=== PATIENT | female | born 1985 | race Hispanic/Latino ===

== ENCOUNTER 2016-12-31 22:12 | Emergency (ER) | payer OTHER ==
[~2016-12-31] VITALS: Ht 152.4 cm; Wt 78.0 kg
[~2016-12-31 22:12] MED LIST: DELTASONE20 MG PO; FLOMAX(MONOGRA0.4 MG PO; MIRENA52 MG; MOTRIN 600 MG600 MG PO; PERCOCET 325 MG1 TA2 PO; PERCOCET 5-3251 EACH PO
--- NOTE | 2016-12-31 23:15 | ED CARDIAC/CP/PALPITATIONS ---
History of Present Illness General Chief Complaint: Chest Pain Stated Complaint: CP Source: patient Exam Limitations: no limitations Vital Signs & Intake/Output Vital Signs & Intake/Output Vital Signs Date Time Temp Pulse Resp B/P B/P Pulse O2 O2 Flow FiO2 Mean Ox Delivery Rate 01/01 0317 96.8 77 18 112/69 99 Room Air 01/01 0017 96.6 77 20 111/66 99 Room Air 12/31 2225 98.7 79 18 121/74 98 Room Air ED Intake and Output 01/01 0000 12/31 1200 Intake Total Output Total Balance Patient 172 lb Weight Weight Reported by Patient Measurement Method Allergies Coded Allergies: morphine (Mild, REDNESS, ITCHING, RED WELPS 12/17/15) Reconcile Medications Oxycodone HCl/Acetaminophen (Percocet 5-325 MG Tablet) 1 EACH TABLET 1-2 TAB PO Q6P PRN PAIN Prednisone (Deltasone) 20 MG TABLET 3 TAB PO DAILY ALLERGIC REACTION Triage Note: PT 37 WEEKS , DUE DATE , TO TRIAGE WITH C/O CHEST PAIN 04/23 RADIATING TO UPPER BACK AND BILAT SHOULDER AINCE YESTERDAY. PT DENIES ABD PAIN, DENIES LOWER BACK PAIN, DENIES VAGINAL DISCHARGE. VSS. EKG DONE IN [facility]. PT CLEARED BY CBC TO STAY IN ER. Triage Nurses Notes Reviewed? yes Onset: Abrupt Duration: day(s):, waxing and waning Timing: recent history Quality/Severity: moderate Location: central Radiation: no radiation Activities at Onset: none Prior Chest Pain/Card Workup: no prior chest pain Modifying Factors: Worsens With: palpation. : Yes Patient currently breastfeeds: No HPI: 31 yo woman, 37 weeks gestation, chest and back pain started today. She notes that she feels pain in her central chest, her back, her neck, worse with deep inspiration. "It feels different from my muscles." She notes no fever, chills, cough, wheezing, sputum, lower extremity swelling. She is otherwise well. Past History Travel History Traveled to [place] past 21 day No Medical History Any Pertinent Medical History? 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 No Review of Systems Review of Systems Constitutional: Reports: no symptoms. EENTM: Reports: no symptoms. Respiratory: Reports: no symptoms. Cardiovascular: Reports: no symptoms. GI: Reports: no symptoms. Genitourinary: Reports: no symptoms. Musculoskeletal: Reports: no symptoms. Skin: Reports: no symptoms. Neurological/Psychological: Reports: no symptoms. Hematologic/Endocrine: Reports: no symptoms. Immunologic/Allergic: Reports: no symptoms. All Other Systems: Reviewed and Negative Physical Exam Physical Exam General Appearance: well developed/nourished, mild distress Head: atraumatic, normal appearance Eyes: Bilateral: normal appearance. Ears, Nose, Throat: normal pharynx, normal ENT inspection, hearing grossly normal Neck: normal inspection, supple, full range of motion Respiratory: normal breath sounds, no respiratory distress, parasternal chest wall tenderness. Cardiovascular: regular rate/rhythm Gastrointestinal: normal bowel sounds, soft, non-tender, no organomegaly Back: normal inspection, normal range of motion, muscle spasm, no vertebral tenderness Extremities: normal inspection, normal capillary refill, normal range of motion, no edema Neurologic/Psych: no motor/sensory deficits, awake, alert, oriented x 3 Skin: intact, normal color, warm/dry Core Measures ACS in differential dx? No Severe Sepsis Present: No Septic Shock Present: No Progress Differential Diagnosis: costochondritis vs pe vs other. Plan of Care: Orders Procedure Date/time Status TROPONIN LEVEL 01/01 2324 Complete PARTIAL THROMBOPLASTIN TIME 01/01 2324 Complete PROTHROMBIN TIME 01/01 2324 Complete D-DIMER 01/01 2324 Complete COMPREHENSIVE METABOLIC PANEL 01/01 2324 Complete CBC WITHOUT DIFFERENTIAL 01/01 2324 Complete EKG 12/31 2212 Active Laboratory Tests 12/31/16 2340: Anion Gap 12, Estimated GFR > 60, BUN/Creatinine Ratio 14.0, Glucose 90, Calcium 9.4, Total Bilirubin 0.5, AST 18, ALT 38, Alkaline Phosphatase 217 H, Troponin I < 0.01, Total Protein 6.4, Albumin 3.2 L, Globulin 3.2, Albumin/Globulin Ratio 1.0 L, PT 10.6, INR 1.01, APTT 27, D-Dimer 394 H, CBC w Diff NO MAN DIFF REQ, RBC 3.83 L, MCV 92.3, MCH 31.6 H, RDW 13.4, MPV 12.3 H, Gran % 75.5 H, Lymphocytes % 17.7 L, Monocytes % 5.4, Eosinophils % 0.9, Basophils % 0.5, Absolute Granulocytes 8.6 H, Absolute Lymphocytes 2.0, Absolute Monocytes 0.6, Absolute Eosinophils 0.1, Absolute Basophils 0.1, PUBS MCHC 34.3 Diagnostic Imaging: Viewed by Me: CT Scan. Discussed w/RAD: CT Scan. Radiology Impression: ct angio... no PE, 3mm nodule... Initial ED EKG: normal axis, normal intervals, normal p-waves, normal QRS complex, normal sinus rhythm Comments: PATIENT: RADHA KRUSE PRESENT AGE: 31 PATIENT ACCOUNT NO: [id number] : 85 LOCATION: [facility] ORDERING PHYSICIAN: EVANGELIST VASQUEZ MD SERVICE DATE: 01/01/17 EXAM TYPE: CAT - CTA CHEST-PULMONARY EMBOLISM EXAMINATION: CT ANGIOGRAM OF THE CHEST WITH AND WITHOUT CONTRAST (CT PULMONARY ANGIOGRAM FOR PE) CLINICAL INFORMATION: Presumptive Dx: CHEST PAIN, +DIMER... 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 TECHNIQUE: Prior to contrast administration, noncontrast localization images were obtained. Subsequently, multidetector volumetric imaging was performed from the thoracic inlet to below the diaphragms following the administration of 100 mL Optiray 350 intravenous contrast. No contrast reaction reported. Sagittal, coronal, and MIP oblique sagittal reformatted images were obtained on the CT workstation, uploaded to PACS, and reviewed. Total exam dose-length product 331.65 mGy-cm. FINDINGS: The timing of the contrast bolus injection is suboptimal therefore the capability of accurately detecting acute pulmonary embolism is limited. Grossly there is no large filling defect within the right and left pulmonary arteries. Lung volumes are low. There is no focal consolidative disease, pleural effusion, or pneumothorax. There is a 3 mm subpleural pulmonary nodule within the right lower lobe best illustrated on axial image 242 of 390 series 2. The trachea and major airways are patent. The thoracic outlet including the visualized portions of the thyroid gland are unremarkable. The chest wall is intact. Specifically no acute rib fracture. Extrathoracic soft tissues are unremarkable. Visualized portions of the abdominal cavity reveal no abnormal finding. IMPRESSION: Limited examination. Grossly there is no large filling defect within the central pulmonary arteries. The distal branches of the pulmonary arteries are not well assessed. There is a 3 mm subpleural pulmonary nodule within the right lower lobe. No follow-up for this nodule is necessary for a low risk patient based on revised criteria established by the Fleischner Society recommendations for incidental pulmonary nodules. Otherwise unremarkable examination with no evidence of consolidative disease or effusion. VTE: negative DICTATED BY: ALEXANDRE BATEMAN MD DATE/TIME DICTATED:01/01/17240 DIAMOND DIE POLISHER:EBEN DATE/TIME TRANSCRIBED:01/01/17240 CONFIDENTIAL, DO NOT COPY WITHOUT APPROPRIATE AUTHORIZATION. <Electronically signed in Other Vendor System> SIGNED BY: ALEXANDRE BATEMAN MD 01/01 0257 Departure Departure Disposition: HOME OR SELF CARE Condition: Stable Clinical Impression Primary Impression: Chest pain Secondary Impressions: Referrals: BRITNEY JENSEN APRN (PCP/Family) Departure Forms: Customer Survey General Discharge Information Comments 12/31/16, 23:15... discussed with dr. gastelum who evaluated patient at [facility]... pt cleared by OB... No sign of pre-eclampsia, labor/contractions. Pt referred back to ED for further evaluation. Discussed that if she needed to assess for PE, he would approved further evaluation such as CT angio. 01/01/17, 3:13AM... pt with negative ct scan for PE... small nodule noted... discussed at length with patient... pt referred to audiology technician and she will follow up also with her spooler. Critical Care Note Critical Care Note Critical Care Time: non-applicable
[2016-12-31 23:49] LABS: ABSOLUTE BASOPHIL COUNT 0.1 /CUMM (0.0-0.2); ABSOLUTE EOSINOPHIL COUNT 0.1 /CUMM (0.0-0.7); ABSOLUTE GRANULOCYTE CT 8.6 /CUMM (1.4-6.5); ABSOLUTE MONOCYTE COUNT 0.6 /CUMM (0.10-0.60); BASOPHIL % 0.5 % (0.0-2.0); EOSINOPHIL % 0.9 % (0-5); GRANULOCYTE % 75.5 % (42.2-75.2); HEMATOCRIT 35.4 % (37-47); MEAN CORPUSCULAR HGB 31.6 PG (27.0-31.0); MEAN CORPUSCULAR HGB CONC 34.3 G/DL (33.0-37.0); MEAN CORPUSCULAR VOLUME 92.3 FL (81.0-99.0); MEAN PLATELET VOLUME 12.3 FL (7.4-10.4); PLATELET COUNT 112 /CUMM (130-400); RBC DISTRIBUTION WIDTH 13.4 % (11.5-14.5); RED BLOOD CELL CT 3.83 /CUMM (4.20-5.40); WHITE BLOOD CELL COUNT 11.4 /CUMM (4.8-10.8)
[2016-12-31 23:56] LABS: PT 10.6 SEC (9.4-12.5); PTT 27 SEC (25-37)
--- NOTE | 2017-01-01 02:57 | CT SCAN REPORT ---
EXAMINATION: CT ANGIOGRAM OF THE CHEST WITH AND WITHOUT CONTRAST (CT PULMONARY ANGIOGRAM FOR PE) CLINICAL INFORMATION: Presumptive Dx: CHEST PAIN, +DIMER... 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 TECHNIQUE: Prior to contrast administration, noncontrast localization images were obtained. Subsequently, multidetector volumetric imaging was performed from the thoracic inlet to below the diaphragms following the administration of 100 mL Optiray 350 intravenous contrast. No contrast reaction reported. Sagittal, coronal, and MIP oblique sagittal reformatted images were obtained on the CT workstation, uploaded to PACS, and reviewed. Total exam dose-length product 331.65 mGy-cm. FINDINGS: The timing of the contrast bolus injection is suboptimal therefore the capability of accurately detecting acute pulmonary embolism is limited. Grossly there is no large filling defect within the right and left pulmonary arteries. Lung volumes are low. There is no focal consolidative disease, pleural effusion, or pneumothorax. There is a 3 mm subpleural pulmonary nodule within the right lower lobe best illustrated on axial image 242 of 390 series 2. The trachea and major airways are patent. The thoracic outlet including the visualized portions of the thyroid gland are unremarkable. The chest wall is intact. Specifically no acute rib fracture. Extrathoracic soft tissues are unremarkable. Visualized portions of the abdominal cavity reveal no abnormal finding. IMPRESSION: Limited examination. Grossly there is no large filling defect within the central pulmonary arteries. The distal branches of the pulmonary arteries are not well assessed. There is a 3 mm subpleural pulmonary nodule within the right lower lobe. No follow-up for this nodule is necessary for a low risk patient based on revised criteria established by the Fleischner Society recommendations for incidental pulmonary nodules. Otherwise unremarkable examination with no evidence of consolidative disease or effusion. VTE: negative
[2017-01-01 03:17] VITALS: BP 112/69
== END 2017-01-01 03:17 ==
LOC: ERH 22:12
PROVIDERS: Pediatrics
DX: O26.93 Pregnancy related conditions, unspecified, third trimester (principal); R07.89 Other chest pain
CPT/HCPCS: 59025; 93005; 93010

== ENCOUNTER 2017-01-14 05:25 | Inpatient (IN) | payer OTHER ==
--- NOTE | 2017-01-13 18:49 | History & Physical ---
General Information and HPI MD Statement: The I have seen and personally examined RADHA KRUSE and documented this H&P. The patient is a 31 year old female at 38[] weeks and [6] days gestation who presented with a chief complaint of [worsening thrombocytopenia]. Source of Information: patient, old records History of Present Illness: Patient is a 31-year-old 8 para 2 LMP 04/17/2016 EDC 01/22/2017 at 38 weeks and 6 days who presents to labor and delivery for planned elective repeat section secondary to worsening thrombocytopenia. Platelets this week were 78,000 a drop from 93,000. The patient has a previous and is not a candidate for induction of labor. care is complete and remarkable for thrombocytopenia and rubella nonimmune. 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 EENTM: Reports: no symptoms. Cardiovascular: Reports: no symptoms. Respiratory: Reports: no symptoms. GI: Reports: no symptoms. Genitourinary: Reports: no symptoms. Musculoskeletal: Reports: no symptoms. Skin: Reports: no symptoms. Neurological/Psychological: Reports: no symptoms. Hematologic/Endocrine: Denies: bruising, bleeding. Immunologic/Allergic: Reports: no symptoms. All Other Systems: Reviewed and Negative Exam & Diagnostic Data Last 24 Hrs of Vital Signs/I&O Vital signs stable Obstetric Exam Wgt Gained During : 25 pounds Pelvimetry: Gynecoid Dilation (cm): 0 Effacement (%): 0 Station: -3 Membranes: intact Fluid: unknown Fundal Height (cm): 40 Multiple Gestation? No Contractions: None #1 - FHR Baseline: 130 Category: 1 Estimated Weight: 6-1/2 pounds Presentation: Cephalic Patient for Induction? No Labs Blood Type & Rh: O+ Antibody Screen: Negative Hct/Hgb & Platelets #1: Hct/Hgb & Platelets #2: Rubella: Immune VDRL #1: Nonreactive VDRL #2: Nonreactive HbsAg: Negative HIV #1: Negative HIV #2 Negative 1 Hr P Group B Strep: Negative Initial Ultrasound: Within normal limits Anatomy Ultrasound: Within normal limits Ultrasound for EFW: 6 Genetic Testing: Negative Assessment/Plan Assessment/Plan: 38 week 6 day worsening thrombocytopenia, previous Plan: Repeat section; 1 unit of platelets on hold As Ranked By This Provider Problem List: 1. Gestational thrombocytopenia Core Measures/Miscellaneous Venous Thromboembolism VTE Risk Factors: / VTE Contraindications: No Contraindications VTE Diagnosis: No Beta Beth Is Beta Beth a Home Med? No Antibiotics Is Patient on Antibiotics? Yes
[~2017-01-14] VITALS: Ht 152.4 cm; Wt 80.7 kg
[2017-01-14 05:55] LABS: ABSOLUTE BASOPHIL COUNT 0.1 /CUMM (0.0-0.2); ABSOLUTE EOSINOPHIL COUNT 0.1 /CUMM (0.0-0.7); ABSOLUTE GRANULOCYTE CT 8.4 /CUMM (1.4-6.5); ABSOLUTE LYMPH COUNT 2.3 /CUMM (1.2-3.4); ABSOLUTE MONOCYTE COUNT 0.7 /CUMM (0.10-0.60); BASOPHIL % 0.5 % (0.0-2.0); GRANULOCYTE % 72.5 % (42.2-75.2); HEMATOCRIT 37.1 % (37-47); MEAN CORPUSCULAR HGB 30.9 PG (27.0-31.0); MEAN CORPUSCULAR HGB CONC 33.3 G/DL (33.0-37.0); MEAN CORPUSCULAR VOLUME 92.8 FL (81.0-99.0); MEAN PLATELET VOLUME 13.7 FL (7.4-10.4); RBC DISTRIBUTION WIDTH 13.7 % (11.5-14.5); RED BLOOD CELL CT 3.99 /CUMM (4.20-5.40); WHITE BLOOD CELL COUNT 11.6 /CUMM (4.8-10.8)
[2017-01-14 06:20] LABS: PLATELET COUNT 109 /CUMM (130-400)
[2017-01-14 08:59] VITALS: BP 104/57
[2017-01-15 06:58] LABS: ABSOLUTE BASOPHIL COUNT 0 /CUMM (0.0-0.2); ABSOLUTE EOSINOPHIL COUNT 0.1 /CUMM (0.0-0.7); ABSOLUTE LYMPH COUNT 1.2 /CUMM (1.2-3.4); ABSOLUTE MONOCYTE COUNT 0.7 /CUMM (0.10-0.60); BASOPHIL % 0.1 % (0.0-2.0); EOSINOPHIL % 0.6 % (0-5); HEMATOCRIT 32.3 % (37-47); MEAN CORPUSCULAR HGB 31.6 PG (27.0-31.0); MEAN CORPUSCULAR HGB CONC 34.1 G/DL (33.0-37.0); MEAN CORPUSCULAR VOLUME 92.8 FL (81.0-99.0); MEAN PLATELET VOLUME 14.2 FL (7.4-10.4); RBC DISTRIBUTION WIDTH 13.3 % (11.5-14.5); RED BLOOD CELL CT 3.48 /CUMM (4.20-5.40)
[2017-01-15 07:16] LABS: GRANULOCYTE % 80.2 % (42.2-75.2); PLATELET COUNT 85 /CUMM (130-400)
[2017-01-16 06:14] LABS: ABSOLUTE BASOPHIL COUNT 0 /CUMM (0.0-0.2); ABSOLUTE EOSINOPHIL COUNT 0.1 /CUMM (0.0-0.7); ABSOLUTE GRANULOCYTE CT 5.2 /CUMM (1.4-6.5); ABSOLUTE LYMPH COUNT 1.8 /CUMM (1.2-3.4); ABSOLUTE MONOCYTE COUNT 0.7 /CUMM (0.10-0.60); BASOPHIL % 0.5 % (0.0-2.0); EOSINOPHIL % 1.8 % (0-5); GRANULOCYTE % 65.4 % (42.2-75.2); HEMATOCRIT 31.8 % (37-47); MEAN CORPUSCULAR HGB 31.2 PG (27.0-31.0); MEAN CORPUSCULAR HGB CONC 33.2 G/DL (33.0-37.0); MEAN CORPUSCULAR VOLUME 94.1 FL (81.0-99.0); MEAN PLATELET VOLUME 12.1 FL (7.4-10.4); RBC DISTRIBUTION WIDTH 13.9 % (11.5-14.5); RED BLOOD CELL CT 3.38 /CUMM (4.20-5.40)
[2017-01-16 06:41] LABS: PLATELET COUNT 104 /CUMM (130-400)
--- NOTE | 2017-01-16 08:27 | PN- Post Delivery/GYN ---
Subjective Subjective: no c/o Review of Systems: neg Objective Last 24 Hrs of Vital Signs/I&O vss Physical Exam: ff incision c/d/i ext nt Assessment/Plan Assessment/Plan s/p c/s pod 2 stable circ discharge tomorrow Problem List: 1. 2. Gestational thrombocytopenia
[2017-01-16] MEDS ORDERED: IBUPROFEN800 M1 PO (17:50)
[2017-01-16] MEDS ORDERED: DOCUSATE SODIU100 M3 PO (17:50)
[2017-01-16] MEDS ORDERED: MACRODANTIN50 M1 PO (17:50)
[2017-01-16] MEDS ORDERED: PERCOCET 5-3251 EACH PO (17:50)
--- NOTE | 2017-01-16 18:32 | Operative Report ---
Operative/Inv Procedure Report Surgery Date: 01/14/17 Name of Procedure: Repeat section Pre-Operative Diagnosis: Gestational thrombocytopenia Post-Operative Diagnosis: Same Estimated Blood Loss: 650 Surgeon/Milk Bottling Machine Operator: MICHELLE CTOA MD,FERMÍN Downey M.D. Anesthesia: spinal Operative/Procedure Note Note: The patient was brought to the operating room placed on the OR table in the sitting position where she underwent spinal anesthetic without complication. Betadine boots were placed and activated. The patient was placed into dorsal supine with a block under her right. A Resendiz catheter was inserted into the bladder and drained clear yellow urine. The abdomen was prepped and draped in the usual sterile fashion and tested. A Pfannenstiel skin incision was made through the old scar and taken down to the layer of the fascia. The fascia was nicked in the midline and extended bilaterally. The underlying rectus muscles were and the peritoneal cavity was entered bluntly. A bladder blade was inserted to protect the bladder from the operative field. A low a bladder flap was created using Metzenbaum scissors. A low transverse uterine incision was made with the scalpel and a liveborn male was delivered atraumatically and handed off to the waiting extrusion press supervisor. The placenta was then manually removed the uterus was exteriorized and wiped clean with a wet lap sponge. It was closed in 2 layers of 0 Polysorb the second imbricating the first. The abdomen and pelvis were copiously irrigated and the uterus was placed back into the abdominal cavity. Suture line was once again visualized and noted to be hemostatic. Rectus muscles were reapproximated with a mattress suture of 2-0 Polysorb. The fascia was closed using 0 Polysorb in a running nonlocking fashion. Subcutaneous tissues were irrigated and coagulated were needed and the skin was closed using sohan. A dry sterile dressing was applied to the wound patient was sent to recovery in good condition. All needle, sponge, and management counts were correct at the end of the procedure 4.
--- NOTE | 2017-01-17 10:21 | PN- Post Delivery/GYN ---
Subjective Subjective: Doing well today with no complaints. Ambulating, tolerating PO, voiding well and passing flatus. Asking to go home today Objective Last 24 Hrs of Vital Signs/I&O NAD RRR CTAB NT and good BS Assessment/Plan Assessment/Plan POD#3 s/p LTCS Doing well overall and can be discharged home (meeting all milestones) Discharge instructions and precautions given. Patient voiced understanding. Attending MD Review Statement Attending Statement Attending MD Statement: examined this patient, discussed with family, discussed with nursing
--- NOTE | 2017-01-21 12:34 | Surgical Discharge Summary ---
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 Greek Review of Systems: Negative Hospital Course Course Attending Physician: FERMÍN ALEXANDRA MD Primary Care Physician: BRITNEY JENSEN APRN [place] [facility] Course: The patient was admitted and underwent repeat for gestational thrombocytopenia she was sent to recovery in good condition. On postoperative day #1 her Resendiz was discontinued her signs are stable and she was afebrile her platelet count did drop slightly. Diet was advance activity was increased on postoperative day #2 platelet count increased she was doing well postoperative day #3 she continued to do well and was discharged home Allergies: Coded Allergies: morphine (Mild, REDNESS, ITCHING, RED WELPS 12/17/15) Disposition Summary Disposition Principal Diagnosis: 38 week Additional Diagnosis: Gestational thrombocytopenia Discharge Disposition: home or self care Discharge Instructions General Discharge Information Code Status: Full Code Patient's Diet: Regular Patient's Activity: Pelvic rest Follow-Up Instructions/Appts: 1 week Medications at Discharge Discharge Medications: Stop taking the following medications: Prednisone (Deltasone) 20 MG TABLET ORAL DAILY Days = 4 Oxycodone HCl/Acetaminophen (Percocet 5-325 MG Tablet) 1 EACH TABLET ORAL EVERY SIX HOURS NEEDED as needed for PAIN Qty = 20 Start taking the following new medications: Nitrofurantoin (Macrodantin) 50 MG CAPSULE 50 Milligram ORAL EVERY SIX HOURS Qty = 28 No Refills Comments: Last Taken:01/17/17 Time: 8:00 am Ibuprofen (Ibuprofen) 800 MG TABLET 800 Milligram ORAL EVERY SIX HOURS NEEDED as needed for UTERINE CRAMPING Qty = 36 No Refills Comments: Last Taken: 01/17/17 Time: 4:30 am Oxycodone HCl/Acetaminophen (Percocet 5-325 MG Tablet) 5 MG-325 MG TABLET 1 Tablet ORAL EVERY 4 HOURS NEEDED as needed for PAIN SCALE 4-6 (MODERATE ) Qty = 24 No Refills Comments: Last Taken: 01/17/17 Time: 9:00 am Docusate Sodium (Docusate Sodium) 100 MG CAPSULE 100 Milligram ORAL AT BEDTIME as needed for STOOL SOFTENER Qty = 60 No Refills Comments: Last Taken: 01/16/17 Time: 10:20 pm
== END 2017-01-17 11:20 | DRG 540 ==
LOC: GNO 05:25
PROVIDERS: ADMIT Obstetrics & Gynecology
PROC: 10D00Z1 Extraction of Products of Conception, Low, Open Approach (ICD-10-PCS; principal; 2017-01-14)
DX: O99.12 Other diseases of the blood and blood-forming organs and certain disorders involving the immune mechanism complicating childbirth (principal); D69.6 Thrombocytopenia, unspecified; Z3A.39 39 weeks gestation of pregnancy; Z37.0 Single live birth; O34.211 Maternal care for low transverse scar from previous cesarean delivery; N85.8 Other specified noninflammatory disorders of uterus
CPT/HCPCS: GNOS; 36415; 80307; 81001; 82570; 87086; 88307; J0131; J0690; J1170; J1200; J1885; J7120

== ENCOUNTER 2017-11-22 12:53 | Emergency (ER) | payer OTHER ==
[~2017-11-22 12:53] MED LIST changes: +DOCUSATE SODIU100 M3 PO; +IBUPROFEN800 M1 PO; +MACRODANTIN50 M1 PO
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
[2017-11-22] MEDS ORDERED: CYCLOBENZAPRINE10 M1 PO (13:17)
[2017-11-22] MEDS ORDERED: KETOROLAC TROME10 M1 PO (13:17)
--- NOTE | 2017-11-22 14:23 | RADIOLOGY REPORT ---
EXAMINATION: XR HUMERUS, RIGHT XR ELBOW, RIGHT CLINICAL INFORMATION: Right humeral and elbow contusion. Evaluate for fracture. COMPARISON: Contralateral left elbow films dated 02/04/2016. TECHNIQUE: AP and lateral views of the right humerus. 4 views of the right elbow. FINDINGS: Right humerus and elbow: The bones and soft tissues are normal. No fracture. Imaged portions of the shoulder and elbow are unremarkable. IMPRESSION: Normal right humerus and right elbow.
[2017-11-22 14:26] VITALS: BP 114/78
== END 2017-11-22 14:43 ==
LOC: ERH 12:53
DX: S16.1XXA Strain of muscle, fascia and tendon at neck level, initial encounter (principal); S06.0X0A Concussion without loss of consciousness, initial encounter; S80.11XA Contusion of right lower leg, initial encounter; S39.012A Strain of muscle, fascia and tendon of lower back, initial encounter; M79.601 Pain in right arm; V47.5XXA Car driver injured in collision with fixed or stationary object in traffic accident, initial encounter
CPT/HCPCS: 73060-RT; 73080-RT; 96372

== ENCOUNTER 2018-03-17 19:43 | Emergency (ER) | payer OTHER ==
[~2018-03-17] VITALS: Ht 152.4 cm; Wt 76.2 kg
[~2018-03-17 19:43] MED LIST changes: +CYCLOBENZAPRINE10 M1 PO; +KETOROLAC TROME10 M1 PO
[2018-03-17 19:46] VITALS: BP 115/72
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
[2018-03-17] MEDS ORDERED: PERCOCET 5-3251 EACH PO (20:16)
[2018-03-17] MEDS ORDERED: AMOXICILLIN875 M1 PO (20:16)
== END 2018-03-17 20:22 ==
LOC: ERH 19:43
DX: S09.93XA Unspecified injury of face, initial encounter (principal); Y04.8XXA Assault by other bodily force, initial encounter; Y92.009 Unspecified place in unspecified non-institutional (private) residence as the place of occurrence of the external cause; Y93.9 Activity, unspecified

== ENCOUNTER 2018-05-08 16:32 | Emergency (ER) | payer OTHER ==
[~2018-05-08] VITALS: Ht 152.4 cm; Wt 72.6 kg
[~2018-05-08 16:32] MED LIST changes: +AMOXICILLIN875 M1 PO
[2018-05-08 16:35] VITALS: BP 141/87
[2018-05-10] MEDS ORDERED: KEFLEX500 M1 PO ×2 (01:20→01:28)
[2018-05-10] MEDS ORDERED: FLOMAX0.4 M1 PO (01:20)
[2018-05-10] MEDS ORDERED: PERCOCET 5-3251 EACH PO (01:20)
[2018-05-10] MEDS ORDERED: ZOFRAN ODT4 M1 SL (01:21)
== END 2018-05-08 18:28 | disposition admitted as inpatient to this hospital (09) ==
LOC: ERH 16:32
DX: R10.9 Unspecified abdominal pain (principal); Z87.442 Personal history of urinary calculi
CPT/HCPCS: 81001; 81025; 99281

== ENCOUNTER 2018-05-11 14:45 | Emergency (ER) | payer OTHER ==
[~2018-05-11 14:45] MED LIST changes: +FLOMAX0.4 M1 PO; +KEFLEX500 M1 PO; +ZOFRAN ODT4 M1 SL
[2018-05-11 15:13] LABS: ABSOLUTE BASOPHIL COUNT 0.1 /CUMM (0.0-0.2); ABSOLUTE EOSINOPHIL COUNT 0.2 /CUMM (0.0-0.7); ABSOLUTE GRANULOCYTE CT 7.5 /CUMM (1.4-6.5); ABSOLUTE LYMPH COUNT 1.7 /CUMM (1.2-3.4); BASOPHIL % 0.7 % (0.0-2.0); GRANULOCYTE % 71.7 % (42.2-75.2); HEMATOCRIT 41.1 % (37-47); MEAN CORPUSCULAR HGB 32.8 PG (27.0-31.0); MEAN CORPUSCULAR HGB CONC 33.1 G/DL (33.0-37.0); MEAN CORPUSCULAR VOLUME 99.2 FL (81.0-99.0); MEAN PLATELET VOLUME 10.7 FL (7.4-10.4); PLATELET COUNT 196 /CUMM (130-400); RBC DISTRIBUTION WIDTH 13.9 % (11.5-14.5); RED BLOOD CELL CT 4.15 /CUMM (4.20-5.40); WHITE BLOOD CELL COUNT 10.4 /CUMM (4.8-10.8)
[2018-05-11 15:24] VITALS: BP 118/66
--- NOTE | 2018-05-11 15:37 | ED GENERAL ADULT ---
See Addendum History of Present Illness General Chief Complaint: General Adult Stated Complaint: SENT IN BY MD DINH FOR ?US Source: patient Exam Limitations: no limitations Vital Signs & Intake/Output Vital Signs & Intake/Output Vital Signs Date Time Temp Pulse Resp B/P B/P Pulse O2 O2 Flow FiO2 Mean Ox Delivery Rate 05/11 1524 98.8 81 20 118/66 96 Allergies Coded Allergies: morphine (Mild, REDNESS, ITCHING, RED WELPS 03/17/18) Reconcile Medications Amoxicillin 875 MG TABLET 1 TAB PO BID TOOTH INJURY Cephalexin (Keflex) 500 MG CAPSULE 1 CAP PO 4 TIMES/DAY INFECTION Cephalexin (Keflex) 500 MG CAPSULE 1 CAP PO BID UTI Nitrofurantoin Monohyd/M-Cryst (Macrobid 100 MG Capsule) 100 MG CAPSULE 1 CAP PO BID UTI with food Ondansetron (Zofran Odt) 4 MG TAB.RAPDIS 1 TAB SL TID PRN nausea Oxycodone HCl/Acetaminophen (Percocet 5-325 MG Tablet) 5 MG-325 MG TABLET 1 TAB PO BID PAIN Oxycodone HCl/Acetaminophen (Percocet 5-325 MG Tablet) 5 MG-325 MG TABLET 1 TAB PO Q4-6 PRN PRN pain Tamsulosin HCl (Flomax) 0.4 MG CAP.ER.24H 1 CAP PO DAILY PRN renal stone Triage Note: PER PT HERE FOR US AND ANTIBIOTIC TO BE SWITCHED BY DR DINH. PT NOT FORTHCOMING AND APPEARS AGITATED THAT THIS RN IS ASKING QUESTIONS Triage Nurses Notes Reviewed? yes Onset: Gradual Duration: day(s): Timing: constant : No Patient currently breastfeeds: No HPI: 32-year-old female at unknown gestation (unsure of LMP) with a history of renal stones presenting for repeat ultrasound and hCG check. Patient was seen in the emergency department 2 days ago for right flank pain that is likely a renal stone, with resulting UTI. She was discharged home with Flomax, Percocet, and cephalexin. Her urine culture results at this morning and showed resistance to cephalexin, but was sensitive to Macrobid. She reports no improvement in her right flank pain. Was instructed to follow-up with Dr. Pimentel, but has not yet made her appointment with urology. During her last visit patient had a positive urine test with lower abdominal cramping. She had an ultrasound done to rule out ectopic, which showed an empty uterus and right-sided ovarian mass that was corpus luteum versus ectopic. She was instructed to return to the emergency department for repeat ultrasound and hCG check in 48 hours. Patient reports that her lower abdominal cramping has resolved. Denies fevers, nausea, vomiting, dysuria, hematuria, vaginal bleeding, vaginal discharge. (Felisha Delcid) Past History Travel History Traveled to [place] past 21 day No Medical History Any Pertinent Medical History? 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 No (Felisha Delcid) Review of Systems Review of Systems Constitutional: Reports: no symptoms. EENTM: Reports: no symptoms. Respiratory: Reports: no symptoms. Cardiovascular: Reports: no symptoms. GI: Reports: see HPI. Genitourinary: Reports: see HPI. Musculoskeletal: Reports: no symptoms. Skin: Reports: no symptoms. Neurological/Psychological: Reports: no symptoms. Hematologic/Endocrine: Reports: no symptoms. Immunologic/Allergic: Reports: no symptoms. All Other Systems: Reviewed and Negative (Felisha Delcid) Physical Exam Physical Exam General Appearance: well developed/nourished, no apparent distress, alert, awake , comfortable Comments: Gen.: Well-nourished, well-developed, no acute distress. Head: Normocephalic, atraumatic. Eyes: Normal inspection bilaterally Ears: Normal inspection bilaterally Nose: Normal inspection Neck: Normal inspection Lungs: clear to auscultation bilaterally, normnal breath sounds Heart: regular rate and rhythm Abdomen: soft and non-tender Back: No CVA tenderness Extremities: Normal inspection Neurologic: alert and oriented x3, steady gait Skin: warm and dry Psychiatric: Normal mood and affect, no apparent delusions or hallucinations, behavior appropriate Core Measures ACS in differential dx? No CVA/TIA Diagnosis: No Sepsis Present: No Sepsis Focused Exam Completed? No (Felisha Delcid) Progress Differential Diagnoses I considered the following diagnoses in my evaluation of the patient: [Renal stone versus hydronephrosis versus UTI versus pyelonephritis versus first trimester versus ectopic] Plan of Care: Orders Procedure Date/time Status HUMAN BETA HCG TITRE 05/11 1455 Complete CBC WITHOUT DIFFERENTIAL 05/11 145 Complete BASIC METABOLIC PANEL 05/11 145 Complete Current Medications Sig/Maya Start time Last Medication Dose Stop Time Status Admin Nitrofurantoin 100 MG ONCE ONE 05/11 1545 CAN (Macrodantin 50MG 05/11 154 Cap) Laboratory Tests 05/11/18 1510: Anion Gap 8, Estimated GFR > 60, BUN/Creatinine Ratio 18.0, Glucose 108 H, Calcium 9.6, Beta HCG, Quant 323.3, CBC w Diff NO MAN DIFF REQ, RBC 4.15 L, MCV 99.2 H, MCH 32.8 H, MCHC 33.1, RDW 13.9, MPV 10.7 H, Gran % 71.7, Lymphocytes % 16.4 L, Monocytes % 9.2, Eosinophils % 2.0, Basophils % 0.7, Absolute Granulocytes 7.5 H, Absolute Lymphocytes 1.7, Absolute Monocytes 1.0 H, Absolute Eosinophils 0.2, Absolute Basophils 0.1 Labs unremarkable, beta hCG is doubling appropriately and currently 323. Patient requesting to be discharged and be called with the results of her ultrasound. At this time there is low concern for ectopic as her hCG is doubling appropriately, and she has no current abdominal pain. On reassessment her abdomen remains soft and nontender. Her vital signs are within normal limits. On review of her chart her ultrasound results are as follows: IMPRESSION: - No intrauterine or ectopic is identified at this time. - 2.4 cm corpus luteum cyst of the right ovary. - Clinical follow-up with serial beta-hCG assessment may be needed. If beta hCG levels are progressively rising, additional sonographic follow-up may be appropriate in order to document presence/absence of a viable intrauterine gestation. Dr. Dinh reports that he received a phone call from the radiologist who reported that there is likely an early IUP, but that it is difficult to tell at this time. Patient called and informed that she will continue to need repeat ultrasounds and beta hCGs. She will follow-up with her FLOORING HELPER for reevaluation. And was given strict return precautions. Initial ED EKG: none (Felisha Delcid) Departure Departure Disposition: HOME OR SELF CARE Condition: Stable Clinical Impression Primary Impression: UTI (urinary tract infection) Secondary Impressions: First trimester , Flank pain Referrals: Ketan Brower APRN (PCP/Family) Additional Instructions: Stop taking cephalexin, and begin taking nitrofurantoin for UTI. Follow-up with urology for reevaluation of your likely renal stone. Continue using Tylenol and /or Percocet as needed for pain. Continue using Flomax to help your renal stone the past. Follow-up with FLOORING HELPER for further evaluation of your . Return to the emergency department for any new or worsening symptoms. Departure Forms: Customer Survey General Discharge Information Prescriptions: Current Visit Scripts Nitrofurantoin Monohyd/M-Cryst (Macrobid 100 MG Capsule) 1 CAP PO BID #14 CAP with food (Felisha Delcid) Departure Comments PA/GAS STOVE SERVICER HELPER Co-Sign Statement Statement: ED Attending supervision documentation- [X] I saw and evaluated the patient. I have also reviewed all the pertinent lab results and diagnostic results. I agree with the findings and the plan of care as documented in the PA's/GAS STOVE SERVICER HELPER's documentation. [] I have reviewed the ED Record and agree with the PA's/GAS STOVE SERVICER HELPER's documentation. [] Additions or exceptions (if any) to the PAs/GAS STOVE SERVICER HELPER's note and plan are summarized below: [] PATIENT: RADHA KRUSE PRESENT AGE: 32 PATIENT ACCOUNT NO: [id number] : 85 LOCATION: [facility] ORDERING PHYSICIAN: Felisha VILLANUEVA SERVICE DATE: 05/11/18 EXAM TYPE: US - US TRANSVAG EXAMINATION: US TRANSVAGINAL CLINICAL INFORMATION: 32-year-old female with abdominal pain. Uncertainty regarding LMP (March?). COMPARISON: Pelvic ultrasound, 05/09/2018 TECHNIQUE: Sonographic imaging of the pelvis was performed using transabdominal and transvaginal transducers. I requested to have the patient return to the ultrasound imaging suite for my evaluation; however, the patient reportedly discharged herself from the Emergency Room. FINDINGS: The uterus is anteflexed. The endometrium measures up to 1 cm AP. Within the lower uterine segment, there is a 0.5 x 0.4 x 0.3 cm hypoechoic focus that is too small to characterize. It might represent a trace amount of fluid or hemorrhage within the endometrial cavity. There is no convincing gestational sac identified within the endometrium at this time. Recommend correlation with quantitative beta hCG levels which, if they continue to rise, may prompt additional sonographic follow-up in order to document a viable intrauterine gestation. A small 0.6 cm hypoechoic cystic focus is seen within the myometrium of the right uterine body. The ovaries are normal. Color Doppler images with spectral waveforms show presence of arterial flow within each ovary. There is a 2.4 cm corpus luteum cyst of the right ovary. No pelvic free fluid. IMPRESSION: - No intrauterine or ectopic is identified at this time. - 2.4 cm corpus luteum cyst of the right ovary. - Clinical follow-up with serial beta-hCG assessment may be needed. If beta hCG levels are progressively rising, additional sonographic follow-up may be appropriate in order to document presence/absence of a viable intrauterine gestation. DICTATED BY: Javon Young MD DATE/TIME DICTATED:05/11/181650 BONDACTOR MACHINE OPERATOR:EBEN DATE/TIME TRANSCRIBED:05/11/181650 CONFIDENTIAL, DO NOT COPY WITHOUT APPROPRIATE AUTHORIZATION. <Electronically signed in Other Vendor System> SIGNED BY: Javon Young MD 05/11/18 7450 (Wellington Dinh DO) Critical Care Note Critical Care Note Critical Care Time: non-applicable (Felisha Delcid)
[2018-05-11] MEDS ORDERED: MACROBID 100 M100 MG PO (16:23)
--- NOTE | 2018-05-11 17:17 | ULTRASOUND REPORT ---
EXAMINATION: US TRANSVAGINAL CLINICAL INFORMATION: 32-year-old female with abdominal pain. Uncertainty regarding LMP (March?). COMPARISON: Pelvic ultrasound, 05/09/2018 TECHNIQUE: Sonographic imaging of the pelvis was performed using transabdominal and transvaginal transducers. I requested to have the patient return to the ultrasound imaging suite for my evaluation; however, the patient reportedly discharged herself from the Emergency Room. FINDINGS: The uterus is anteflexed. The endometrium measures up to 1 cm AP. Within the lower uterine segment, there is a 0.5 x 0.4 x 0.3 cm hypoechoic focus that is too small to characterize. It might represent a trace amount of fluid or hemorrhage within the endometrial cavity. There is no convincing gestational sac identified within the endometrium at this time. Recommend correlation with quantitative beta hCG levels which, if they continue to rise, may prompt additional sonographic follow-up in order to document a viable intrauterine gestation. A small 0.6 cm hypoechoic cystic focus is seen within the myometrium of the right uterine body. The ovaries are normal. Color Doppler images with spectral waveforms show presence of arterial flow within each ovary. There is a 2.4 cm corpus luteum cyst of the right ovary. No pelvic free fluid. IMPRESSION: - No intrauterine or ectopic is identified at this time. - 2.4 cm corpus luteum cyst of the right ovary. - Clinical follow-up with serial beta-hCG assessment may be needed. If beta hCG levels are progressively rising, additional sonographic follow-up may be appropriate in order to document presence/absence of a viable intrauterine gestation.
== END 2018-05-11 16:46 ==
LOC: ERH 14:45
PROVIDERS: Physician Assistant
DX: O23.41 Unspecified infection of urinary tract in pregnancy, first trimester (principal); F17.210 Nicotine dependence, cigarettes, uncomplicated
CPT/HCPCS: 76817